=== PATIENT | female | born 1970 | race Caucasian/White ===

== ENCOUNTER 2018-02-27 16:43 | Emergency (ER) | payer OTHER, MEDICAID, SELFPAY ==
[2018-02-27 16:44] VITALS: TEMP 36.7; BMI 32.8
[2018-02-27 16:46] VITALS: BP 131/72; PULSE 74; RESP 14; O2SAT 100
--- NOTE | 2018-02-27 16:47 | DI.RAD.S_ITS ---
PROCEDURE: XR ANKLE RT MIN 3V INDICATIONS: pain injury TECHNIQUE: 3 views of the ankle were acquired. COMPARISON: None. FINDINGS: Bones: Mildly displaced oblique fracture of distal fibula. Ankle mortise is normally aligned. No suspicious bony lesions. Soft tissues: No tibiotalar joint effusion. Achilles tendon appears normal. IMPRESSION: Mildly displaced distal fibular fracture. Dictated by: August Hudson M.D. on 02/27/2018 at 16:56 Approved by: August Hudson M.D. on 02/27/2018 at 16:57
--- NOTE | 2018-02-27 18:23 | ED_ITS ---
HPI - Extremity Injury (Lower) General Chief Complaint: Extremity Injury, Lower Stated Complaint: R ankle injury Time Seen by Provider: 02/27/18 18:07 Source: patient Mode of arrival: ambulatory Limitations: no limitations History of Present Illness HPI Narrative: 48-year-old female here for evaluation of right ankle injury. She states that just prior to arrival she was walking down an incline when her right ankle ?went out? from underneath her. She states that she felt and heard a ?pop? has not been able to ambulate since then. No prior injuries. Swelling to the right ankle. Related Data Previous Rx's Medication Instructions Recorded hydrocodone-acetaminophen 1 tab PO Q4-6H PRN #20 tab 02/27/18 Allergies Allergy/AdvReac Type Severity Reaction Status Date / Time Penicillins Allergy Unverified 02/27/18 16:44 PCN (PENICILLIN) Allergy Severe HIVES Uncoded 10/21/17 12:17 Review of Systems Constitutional Denies frequent falls ENT Ears, Nose, Mouth, and Throat: Denies vertigo and Denies dizziness Musculoskeletal Reports abnormal gait (Secondary to pain and right ankle) Comments: Right ankle pain Integumentary/Breasts Denies lesions and Denies rash Neurologic Reports abnormal gait (Secondary to pain and right ankle), Reports burning sensations (Right ankle), Denies vertigo, Denies dizziness, Denies frequent falls and Denies focal weakness Hematologic/Lymphatic Denies easy bleeding and Denies easy bruising [facility]LY [facility] Medical History Healthy adult (Acute) Surgical History No pertinent past surgical history (Acute) Exam Initial Vital Signs Initial Vital Signs: Vital Signs Temperature 98.1 F 02/27/18 16:44 Const General: cooperative, healthy appearing, well developed, well groomed and No acute distress Resp Effort & Inspection: normal respiratory effort Cardio Pulses: dorsalis pedis present on the right Skin Lesions: no lesions Rashes: no rashes Neuro Other: Sensation intact to light touch right lower extremity Extrem Other: No proximal fibula tenderness. No calf tenderness. Does have tenderness and swelling to the lateral malleolus. No medial malleolus tenderness. No foot tenderness Psych Appearance: grossly normal and well kempt Course Orders Ordered: ED Orders 02/27/18 16:47 XR ankle RT min 3V Stat Discontinued Medications Hydrocodone Bitart/Acetaminophen ([place] 5/325) 1 tab PO NOW ONE Stop: 02/27/18 18:21 Last Admin: 02/27/18 18:38 Dose: 1 tab Hydrocodone Bitart/Acetaminophen (Vicodin Prepack) 1 bottle MISC SEEINSTR ONE Stop: 02/27/18 18:29 Last Admin: 02/27/18 18:38 Dose: 1 bottle Vital Signs - 8 hr 02/27/18 16:44 02/27/18 16:46 02/27/18 19:00 Temperature 98.1 F Pulse Rate 74 Pulse Rate [Bilateral Dorsalis Pedis] 68 Respiratory Rate 14 Blood Pressure Blood Pressure [Right Arm] 131/72 H Pulse Oximetry 100 02/27/18 19:32 Temperature Pulse Rate 78 Pulse Rate [Bilateral Dorsalis Pedis] Respiratory Rate 16 Blood Pressure 113/70 Blood Pressure [Right Arm] Pulse Oximetry 98 MDM - Extremity Injury (Lower) Imaging Data Right ankle x-ray: Radiologist's impression: Minimally displaced right distal fibular fracture MDM Narrative Medical decision making narrative: Patient is neurovascularly intact. Has an isolated distal fibula fracture. Patient was given crutches and a CAM walker. She is given care instructions. She was given follow-up instructions. She was given pain medications. Patient expressed understanding and agreement with plan Discharge Plan Departure Patient Disposition: Home Clinical Impression: Fibula fracture Discharge Date/Time: 02/27/18 19:15 Interventions: ED Discharge Assessment Last Done: 02/27/18 19:32 Instructions: How to Use Crutches, Fibula Shaft Fracture Activity Restrictions/Additional Instructions: You can walk on your right lower extremity as tolerated. Call your primary care doctor on Thursday for follow-up. Also call the [facility] at [phone]. Use the crutches as needed. You can take the boot off to shower and at night to sleep. Also recommend that you keep her foot elevated as much as possible. You can take the boot off to ice her ankle as well.. Otherwise keep the boot on while you are walking. Return to the emergency department for any new or worsening symptoms Prescriptions: New hydrocodone-acetaminophen 5-325 mg tablet 1 tab PO Q4-6H PRN (Reason: pain) Qty: 20 RF: 0 Stand Alone Forms: Work/School Restrictions
[2018-02-27] MEDS: HYDROCODONE/ACET 5/325 PREPACK 1 BOTTLE MISC (18:38)
[2018-02-27] MEDS: HYDROCODONE/ACET 5/325 TABLET 1 TAB PO (18:38)
[2018-02-27 19:00] VITALS: PULSE 68
[2018-02-27 19:32] VITALS: BP 113/70; PULSE 78; RESP 16; O2SAT 98
== END 2018-02-27 19:15 | disposition home or self-care (01) ==
PROVIDERS: Emergency Provider Emergency Medicine; Family Provider Physician Assistant Medical; PCP Physician Assistant Medical
DX: S82.401A Unspecified fracture of shaft of right fibula, initial encounter for closed fracture (principal); T73.3XXA Exhaustion due to excessive exertion, initial encounter
CPT/HCPCS: 73610; 99283

== ENCOUNTER 2021-12-19 19:52 | Emergency (ER) | payer OTHER, MEDICAID, SELFPAY ==
[2021-12-19] VITALS (9 sets, daily range): BP systolic 109–169; BP diastolic 54–93; PULSE 62–73; RESP 14–56; TEMP 36.3; O2SAT 97–100; BMI 26.9
--- NOTE | 2021-12-19 23:23 | ED.SKABFB ---
HPI - Skin/Abscess/Foreign Bdy General Chief complaint: Skin/Abscess/Foreign Body Stated complaint: Really Bad Allergies, Painful Skin Time Seen by Provider: 12/19/21 22:31 Source: patient Mode of arrival: Ambulatory Limitations: no limitations History of Present Illness HPI narrative: Patient has had intermittent hives and itching for the past 4 months.. Patient has been under lot of stress starting in June of last year. However no rash. She has had family losses as well as loss of her dog. 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 She is unsure if this is what is causing her hives and itching to her hands and forearms and chest and around the neck. Has tried triamcinolone with little effect. Patient is scheduled for allergy testing by her family doctor. No trouble breathing. Related Data Previous Rx's Medication Instructions Recorded hydrocodone 5 mg-acetaminophen 325 1 tab PO Q4-6H PRN pain #20 tabs 02/27/18 mg tablet famotidine 20 mg tablet (Pepcid) 20 mg PO BID #14 tabs 12/19/21 hydroxyzine HCl 25 mg tablet 25 mg PO QID PRN itching #20 tabs 12/19/21 methylprednisolone 4 mg tablets in See Rx Instructions PO .COMPLEX 12/19/21 a dose pack (Medrol (Richie)) #21 ea Allergies Allergy/AdvReac Type Severity Reaction Status Date / Time Penicillins Allergy Verified 12/19/21 20:07 PCN (PENICILLIN) Allergy Severe HIVES Uncoded 10/21/17 12:17 Review of Systems Review of Systems Narrative: GENERAL: Denies chills, fatigue, malaise, fever, sweats. HEENT: Denies sinus pain, ear pain, sore throat RESPIRATORY: Denies dyspnea, cough CARDIOVASCULAR: Denies chest pain, palpitations GASTROINTESTINAL: Denies nausea, vomiting, abdominal pain : Denies dysuria, frequency, hematuria MUSCULOSKELETAL: denies muscle or bony pain SKIN: Negative for skin lesions, positive for rash and pruritus NEUROLOGIC: Denies weakness, numbness ROS Unobtainable: All systems reviewed & are unremarkable except as noted in HPI and below Patient History Medical History Healthy adult Surgical History No pertinent past surgical history Social History Smoking Status: Unknown if ever smoked Smoking Status: Unknown if ever smoked alcohol intake frequency: a few times a week Substance Use Type: does not use Exam Narrative Exam Narrative: GENERAL: in no distress, not toxic not dyspneic HEAD: Normocephalic. EYES: Pupils equal round No scleral icterus. ENT: Mucous membranes moist. No oral or intraoral swelling NECK: Trachea midline. No stridor CARDIOVASCULAR: Regular rate and rhythm without murmurs RESPIRATORY: Clear to auscultation. Breath sounds equal bilaterally. No wheezes, rales, or rhonchi. BACK: No flank tenderness. NEURO: AOx4. SKIN: Warm and dry, there are wheal like lesions on the forearms bilaterally and dorsum of the hands. Also there is erythema in a necklace like pattern around the neck. No lesions on the abdomen or back. PSYCH: Not anxious, is cooperative Initial Vital Signs Initial Vital Signs: Vital Signs Temperature 97.3 F L 12/19/21 20:07 Pulse Rate 73 12/19/21 20:07 Respiratory Rate 14 12/19/21 20:07 Blood Pressure 169/93 H 12/19/21 20:07 Pulse Oximetry 99 12/19/21 20:07 Oxygen Delivery Method 12/19/21 20:07 Course Course Course Narrative: No new issues during course of stay Orders Ordered: Discontinued Medications Famotidine (Famotidine 20 Mg Tablet) 20 mg PO NOW ONE Stop: 12/19/21 23:33 Last Admin: 12/19/21 23:40 Dose: 20 mg Documented By: NR Prednisone (Prednisone 20 Mg Tablet) 40 mg PO NOW ONE Stop: 12/19/21 23:32 Last Admin: 12/19/21 23:41 Dose: 40 mg Documented By: NR Reevaluation(s) Reevaluation #1: Reviewed with patient likely allergic reaction to her environment/work environment. She is unsure when it is most intense. She is scheduled for allergy testing. Return precautions reviewed with her. Time: 23:31 Vital Signs Vital signs: Vital Signs - 8 hr 12/19/21 20:07 12/19/21 20:23 12/19/21 20:24 Temperature 97.3 F L Pulse Rate 73 69 73 Respiratory Rate 14 56 H Blood Pressure 169/93 H Pulse Oximetry 99 100 100 Oxygen Delivery Method Room Air 12/19/21 20:24 12/19/21 20:30 12/19/21 20:31 Temperature Pulse Rate 62 65 Respiratory Rate 24 27 H Blood Pressure 156/70 H Pulse Oximetry 100 100 Oxygen Delivery Method 12/19/21 20:31 12/19/21 21:00 12/19/21 21:01 Temperature Pulse Rate 65 Respiratory Rate 34 H Blood Pressure 131/60 119/58 L Pulse Oximetry 98 Oxygen Delivery Method 12/19/21 21:01 12/19/21 21:30 12/19/21 21:31 Temperature Pulse Rate 70 67 64 Respiratory Rate 37 H 26 H 21 Blood Pressure Pulse Oximetry 98 97 97 Oxygen Delivery Method 12/19/21 21:31 Temperature Pulse Rate Respiratory Rate Blood Pressure 109/54 L Pulse Oximetry Oxygen Delivery Method MDM - Skin/Abscess/Foreign Bdy Differential Diagnosis Differential diagnosis: Likely urticaria, allergic reaction to drug, cellulitis, eczema, insect bites and contact dermatitis MDM Narrative Medical decision making narrative: Appropriate for discharge home. No blood work indicated. Likely contact dermatitis versus allergic reaction to dander. Return precautions reviewed patient. Prescriptions provided for her. She does have a family doctor Discharge Plan Departure Patient Disposition: Home Clinical Impression: Dermatitis Instructions: DI for Atopic Dermatitis-Adult Activity Restrictions/Additional Instructions: Be sure to get allergy testing as scheduled by family doctor. Prescription for steroids has been provided for you as well as hydroxyzine and Pepcid. You must try to avoid contact with PET dander to see if this is causing your allergic reaction. Return if worse or if any questions or concerns. Return if any trouble breathing. Prescriptions: New methylprednisolone [Medrol (Richie)] 4 mg tablets,dose pack See Rx Instructions .ROUTE .COMPLEX Qty: 21 0RF Rx Instructions: orally per package directions famotidine [Pepcid] 20 mg tablet 20 mg PO BID Qty: 14 0RF hydroxyzine HCl 25 mg tablet 25 mg PO QID PRN (Reason: itching) Qty: 20 0RF No Action hydrocodone-acetaminophen 5-325 mg tablet 1 tab PO Q4-6H PRN (Reason: pain) Qty: 20 0RF Referrals: Geneva Clemens PA-C [Primary Care Provider] - Visit Report Forms: Patient Portal/API
[2021-12-19] MEDS: FAMOTIDINE 20 MG TABLET PO (23:40)
[2021-12-19] MEDS: predniSONE 20 MG TABLET 40 MG PO (23:41)
== END 2021-12-19 23:46 | disposition home or self-care (01) ==
PROVIDERS: Emergency Provider Emergency Medicine; Family Provider Physician Assistant Medical; PCP Physician Assistant Medical
DX: L30.9 Dermatitis, unspecified (principal)
CPT/HCPCS: 99283; A9270

== ENCOUNTER 2022-05-10 12:34 | Emergency (ER) | payer OTHER, MEDICAID, SELFPAY ==
[2022-05-10] VITALS (21 sets, daily range): BP systolic 107–189; BP diastolic 60–91; PULSE 60–116; RESP 17–33; TEMP 36.4–36.9; O2SAT 96–99; BMI 29.0
--- NOTE | 2022-05-10 13:04 | ED_ITS ---
HPI - Alcohol <Lyla Rivera, [facility] - Last Filed: 05/10/22 20:25> General Chief Complaint: Toxicology Problem Stated Complaint: Need to Detox, Vivek Time Seen by Provider: 05/10/22 12:50 Source: patient Mode of arrival: Ambulatory History of Present Illness HPI narrative: This is a 52-year-old female presents to the emergency department with alcohol withdrawal symptoms requesting inpatient detox. She states that she drinks 1-2 bottles of wine each day, denies any other medical problems. States that she last drank last evening, she typically drinks wine. She called her mother and family who picked her up and brought her to the emergency department. Patient lives with her children. She denies any ingestion, denies any attempts at self- harm other than drinking. She states that she has had tremors and symptoms of withdrawal in the past but has never had a seizure. She has sought treatment in the past as well. Patient has [facility] insurance, her primary care provider she states is on [address] but she has not seen them in a while. On chart review, no Family Medicine notes are reviewable. Patient denies taking any regular medications, she denies any blood in her stool, states she had 1 episode of emesis this morning, it was approximately 300 mL of bile. She denies any blood in that. She denies any recent trauma, blackouts, or falls. She denies any recent episodes where she did not know where she was when she woke up. Patient complains of epigastric pain, had 1 episode of vomiting this morning, no other episodes previously. She is not currently on a PPI Related Data Previous Rx's Medication Instructions Recorded hydrocodone 5 mg-acetaminophen 325 1 tab PO Q4-6H PRN pain #20 tabs 02/27/ mg tablet famotidine 20 mg tablet (Pepcid) 20 mg PO BID #14 tabs 12/19/21 hydroxyzine HCl 25 mg tablet 25 mg PO QID PRN itching #20 tabs 12/19/21 methylprednisolone 4 mg tablets in See Rx Instructions PO .COMPLEX 12/19/21 a dose pack (Medrol (Richie)) #21 ea omeprazole 20 mg tablet,delayed 20 mg PO DAILY #30 tabs 05/10/22 release Allergies Allergy/AdvReac Type Severity Reaction Status Date / Time Penicillins Allergy Verified 05/10/22 12:40 PCN (PENICILLIN) Allergy Severe HIVES Uncoded 10/21/17 12:17 Review of Systems <TRUMAN Mendieta - Last Filed: 05/10/22 20:25> Review of Systems Narrative: Review of systems is negative for acute abnormalities unless otherwise noted in HPI Patient History <TRUMAN Mendieta - Last Filed: 05/10/22 20:25> Medical History (Updated 05/10/22 @ 17:46 by TRUMAN Mendieta) Healthy adult Surgical History No pertinent past surgical history Social History Smoking Status: Unknown if ever smoked Smoking Status: Unknown if ever smoked alcohol intake frequency: 3 or more drinks per day Alcohol type: wine Substance Use Type: does not use Exam <TRUMAN Mendieta - Last Filed: 05/10/22 20:25> Narrative Exam Narrative: Reviewed vitals signs and nursing notes. General: Pleasant and cooperative, patient is anxious, itching her skin, uncomfortable, appears to be in acute distress without respiratory distress, well groomed HEENT: symmetrical facial expressions, tongue fasciculations are present, moist mucous membranes Cardiovascular: regular rate and rhythm, no peripheral edema, warm extremities Respiratory: normal effort, tachypneic, able to speak in complete sentences, without wheezing, stridor, or abnormal breath sounds. No retractions. GI: abdomen soft, nontender to palpation, nondistended, without masses, without masses MSK: Significant tremor to bilateral upper extremities, patient is hyperreflexive, moves all extremities, neurovascularly intact, no weakness, normal tone Skin: brisk capillary refill, without pallor or erythema, face is flushed, Neuro: normal speech and cognition, A&O x3, ambulatory, clear speech, Psych: mental status is grossly normal, congruent mood, normal affect, pleasant and cooperative CIWA by RN is 19 Medications ordered at 13:00, IV placed just prior to this Initial Vital Signs Initial Vital Signs: Vital Signs Temperature 97.5 F L 05/10/22 12:40 Pulse Rate 92 H 05/10/22 12:40 Respiratory Rate 17 05/10/22 12:40 Blood Pressure 189/87 H 05/10/22 12:40 Pulse Oximetry 99 05/10/22 12:40 Oxygen Delivery Method 05/10/22 12:40 <Rom Honeycutt DO - Last Filed: 05/11/22 08:36> Initial Vital Signs Initial Vital Signs: Vital Signs Temperature 97.5 F L 05/10/22 12:40 Pulse Rate 92 H 05/10/22 12:40 Respiratory Rate 17 05/10/22 12:40 Blood Pressure 189/87 H 05/10/22 12:40 Pulse Oximetry 99 05/10/22 12:40 Oxygen Delivery Method 05/10/22 12:40 Course <TRUMAN Mendieta - Last Filed: 05/10/22 20:25> Orders Ordered: Discontinued Medications Acetaminophen (Acetaminophen 325 Mg Tablet) 975 mg PO NOW ONE Stop: 05/10/22 14:44 Last Admin: 05/10/22 14:50 Dose: 975 mg Documented By: VARGAS Artificial Tears (Polyvinyl Alcohol Drops) 1 drops EYE-BOTH PRN PRN PRN Reason: Dry Eye(s) Last Admin: 05/10/22 16:56 Dose: 1 drop Documented By: ERIN Benzocaine (Benzocaine/Menthol 1 Lalito Pkt) 1 each PO NOW ONE Stop: 05/10/22 16:01 Last Admin: 05/10/22 16:33 Dose: 1 each Documented By: ERIN Hydromorphone HCl (Hydromorphone 0.5 Mg Inj) 0.5 mg IV NOW ONE Stop: 05/10/22 14:38 Last Admin: 05/10/22 20:27 Dose: Not Given Documented By: VARGAS(2) Hydroxyzine Pamoate (Hydroxyzine Pamoate 25 Mg Capsule) 25 mg PO NOW ONE Stop: 05/10/22 19:46 Last Admin: 05/10/22 20:26 Dose: 25 mg Documented By: VARGAS(2) Sodium Chloride (Normal Saline 0.9%) 1,000 mls @ 1,000 mls/hr IV BOLUS ONE Stop: 05/10/22 13:53 Last Infusion: 05/10/22 14:25 Dose: 0 mls/hr Documented By: Admin: 05/10/22 13:17 Dose: 1,000 mls/hr Documented By: VARGAS Thiamine HCl 100 mg/ Sodium (Chloride) 101 mls @ 404 mls/hr IV NOW ONE Stop: 05/10/22 12:58 Last Infusion: 05/10/22 14:17 Dose: 0 mls/hr Documented By: VARGAS(2) Admin: 05/10/22 13:18 Dose: 404 mls/hr Documented By: VARGAS Magnesium Sulfate (Magnesium Sulfate) 2 gm in 50 mls @ 150 mls/hr IV NOW ONE Stop: 05/10/22 14:08 Last Infusion: 05/10/22 14:45 Dose: 0 mls/hr Documented By: VARGAS Co-signed By: VARGAS(2) Admin: 05/10/22 14:04 Dose: 150 mls/hr Documented By: VARGAS Co-signed By: VALERIE Sodium Chloride (Normal Saline 0.9%) 1,000 mls @ 1,000 mls/hr IV BOLUS ONE Stop: 05/10/22 15:46 Last Infusion: 05/10/22 16:43 Dose: 0 mls/hr Documented By: Admin: 05/10/22 14:51 Dose: 1,000 mls/hr Documented By: VARGAS Ondansetron HCl (Ondansetron 4 Mg/2 Ml Inj) 4 mg IV NOW ONE Stop: 05/10/22 12:55 Last Admin: 05/10/22 13:18 Dose: 4 mg Documented By: VARGAS Ondansetron HCl (Ondansetron 4 Mg/2 Ml Inj) 4 mg IV NOW ONE Stop: 05/10/22 18:10 Last Admin: 05/10/22 18:34 Dose: 4 mg Documented By: ERIN Oxycodone/Acetaminophen (Oxycodone/Acetaminophen 5/325 Tablet) 1 tab PO NOW ONE Stop: 05/10/22 19:45 Last Admin: 05/10/22 20:26 Dose: 1 tab Documented By: VARGAS(2) Pantoprazole Sodium (Pantoprazole 40 Mg Vial) 40 mg IV NOW ONE Stop: 05/10/22 14:34 Last Admin: 05/10/22 14:37 Dose: 40 mg Documented By: VARGAS(2) Pantoprazole Sodium (Pantoprazole Dr 20 Mg Tablet) 20 mg PO NOW ONE Stop: 05/10/22 19:45 Last Admin: 05/10/22 20:27 Dose: 20 mg Documented By: VARGAS(2) Phenobarbital (Phenobarbital 65 Mg/Ml Vial) 260 mg IV NOW ONE Stop: 05/10/22 12:55 Last Admin: 05/10/22 13:19 Dose: 260 mg Documented By: VARGAS Phenobarbital (Phenobarbital 65 Mg/Ml Vial) 130 mg IV NOW ONE Stop: 05/10/22 14:31 Last Admin: 05/10/22 14:37 Dose: 130 mg Documented By: VARGAS(2) Phenobarbital (Phenobarbital 65 Mg/Ml Vial) 130 mg IV NOW ONE Stop: 05/10/22 15:31 Last Admin: 05/10/22 15:47 Dose: 130 mg Documented By: VARGAS Phenobarbital (Phenobarbital 65 Mg/Ml Vial) 65 mg IV NOW ONE Stop: 05/10/22 16:20 Last Admin: 05/10/22 16:33 Dose: 65 mg Documented By: ERIN Reevaluation(s) Reevaluation #1: Reassessed patient she is calm, heart rate down to 76, she appears comfortable, no vomiting she still has tremors bilaterally with arms extended Time: 13:49 Reevaluation #2: Bilateral tremors with arm extension, patient states that she feels much better, denies chest pain, denies nausea or vomiting, endorses epigastric pain, complains of pain, ordered hydromorphone, right upper quadrant ultrasound, and Protonix. Patient receiving magnesium infusion now ordered repeat phenobarbital 160 mg Time: 14:32 Reevaluation #3: 1434 patient complaining epigastric pain and also headache, just ordered hydromorphone but nurse requests to give Tylenol instead as she states that she would rather give for headache. At 15:00, patient states that her abdominal pain is much better after the Dilaudid, endorses still having headache, ordered 2 L of normal saline, pending repeat lactate Additional Reevaluation(s): RN states that patient's CIWA is 13, ordered 130 mg of phenobarbital ., ultrasound arrived to patient's room at 15:55, urine dip was negative for leukocytes and RBCs 1709, CIWA 3, pt received 65mg phenobarb most recently Vital Signs Vital signs: Vital Signs - 8 hr 05/10/22 12:40 05/10/22 13:11 05/10/22 13:11 Temperature 97.5 F L Pulse Rate 92 H 79 Respiratory Rate 17 19 Blood Pressure 189/87 H 167/81 H Pulse Oximetry 99 98 Oxygen Delivery Method Room Air 05/10/22 13:30 05/10/22 13:30 05/10/22 14:00 Temperature Pulse Rate 78 86 Respiratory Rate 22 20 Blood Pressure 157/78 H Pulse Oximetry 97 99 Oxygen Delivery Method 05/10/22 14:01 05/10/22 14:01 05/10/22 14:30 Temperature Pulse Rate 85 92 H Respiratory Rate 20 20 Blood Pressure 152/71 H Pulse Oximetry 98 98 Oxygen Delivery Method 05/10/22 14:31 05/10/22 14:31 05/10/22 15:00 Temperature Pulse Rate 91 H Respiratory Rate 20 Blood Pressure 137/68 157/70 H Pulse Oximetry 98 Oxygen Delivery Method 05/10/22 15:00 05/10/22 15:41 05/10/22 15:42 Temperature Pulse Rate 95 H 116 H 113 H Respiratory Rate 22 26 H Blood Pressure Pulse Oximetry 99 96 Oxygen Delivery Method 05/10/22 15:42 05/10/22 16:00 05/10/22 16:00 Temperature Pulse Rate 99 H Respiratory Rate 22 Blood Pressure 139/61 126/60 Pulse Oximetry 97 Oxygen Delivery Method 05/10/22 16:30 05/10/22 16:30 05/10/22 17:00 Temperature 98.4 F Pulse Rate 100 H 102 H Respiratory Rate 21 Blood Pressure 142/68 H Pulse Oximetry 98 98 Oxygen Delivery Method 05/10/22 17:01 05/10/22 17:01 05/10/22 17:30 Temperature Pulse Rate 105 H Respiratory Rate 22 Blood Pressure 148/71 H 143/75 H Pulse Oximetry 98 Oxygen Delivery Method 05/10/22 17:30 05/10/22 18:00 05/10/22 18:00 Temperature Pulse Rate 99 H 88 Respiratory Rate 17 Blood Pressure 133/63 Pulse Oximetry 98 96 Oxygen Delivery Method 05/10/22 18:30 05/10/22 18:30 05/10/22 19:00 Temperature Pulse Rate 100 H 100 H Respiratory Rate 18 33 H Blood Pressure 125/91 H Pulse Oximetry 98 Oxygen Delivery Method 05/10/22 19:01 05/10/22 19:01 05/10/22 19:30 Temperature Pulse Rate 101 H Respiratory Rate 27 H Blood Pressure 107/75 141/66 H Pulse Oximetry 98 Oxygen Delivery Method 05/10/22 19:30 Temperature Pulse Rate 82 Respiratory Rate 21 Blood Pressure Pulse Oximetry 97 Oxygen Delivery Method <Rom Honeycutt DO - Last Filed: 05/11/22 08:36> Orders Ordered: Discontinued Medications Acetaminophen (Acetaminophen 325 Mg Tablet) 975 mg PO NOW ONE Stop: 05/10/22 14:44 Last Admin: 05/10/22 14:50 Dose: 975 mg Documented By: VARGAS Artificial Tears (Polyvinyl Alcohol Drops) 1 drops EYE-BOTH PRN PRN PRN Reason: Dry Eye(s) Last Admin: 05/10/22 16:56 Dose: 1 drop Documented By: ERIN Benzocaine (Benzocaine/Menthol 1 Lalito Pkt) 1 each PO NOW ONE Stop: 05/10/22 16:01 Last Admin: 05/10/22 16:33 Dose: 1 each Documented By: ERIN Hydromorphone HCl (Hydromorphone 0.5 Mg Inj) 0.5 mg IV NOW ONE Stop: 05/10/22 14:38 Last Admin: 05/10/22 20:27 Dose: Not Given Documented By: VARGAS(2) Hydroxyzine Pamoate (Hydroxyzine Pamoate 25 Mg Capsule) 25 mg PO NOW ONE Stop: 05/10/22 19:46 Last Admin: 05/10/22 20:26 Dose: 25 mg Documented By: VARGAS(2) Sodium Chloride (Normal Saline 0.9%) 1,000 mls @ 1,000 mls/hr IV BOLUS ONE Stop: 05/10/22 13:53 Last Infusion: 05/10/22 14:25 Dose: 0 mls/hr Documented By: Admin: 05/10/22 13:17 Dose: 1,000 mls/hr Documented By: VARGAS Thiamine HCl 100 mg/ Sodium (Chloride) 101 mls @ 404 mls/hr IV NOW ONE Stop: 05/10/22 12:58 Last Infusion: 05/10/22 14:17 Dose: 0 mls/hr Documented By: VARGAS(2) Admin: 05/10/22 13:18 Dose: 404 mls/hr Documented By: VARGAS Magnesium Sulfate (Magnesium Sulfate) 2 gm in 50 mls @ 150 mls/hr IV NOW ONE Stop: 05/10/22 14:08 Last Infusion: 05/10/22 14:45 Dose: 0 mls/hr Documented By: VARGAS Co-signed By: VARGAS(2) Admin: 05/10/22 14:04 Dose: 150 mls/hr Documented By: VARGAS Co-signed By: VALERIE Sodium Chloride (Normal Saline 0.9%) 1,000 mls @ 1,000 mls/hr IV BOLUS ONE Stop: 05/10/22 15:46 Last Infusion: 05/10/22 16:43 Dose: 0 mls/hr Documented By: Admin: 05/10/22 14:51 Dose: 1,000 mls/hr Documented By: VARGAS Ondansetron HCl (Ondansetron 4 Mg/2 Ml Inj) 4 mg IV NOW ONE Stop: 05/10/22 12:55 Last Admin: 05/10/22 13:18 Dose: 4 mg Documented By: VARGAS Ondansetron HCl (Ondansetron 4 Mg/2 Ml Inj) 4 mg IV NOW ONE Stop: 05/10/22 18:10 Last Admin: 05/10/22 18:34 Dose: 4 mg Documented By: ERIN Oxycodone/Acetaminophen (Oxycodone/Acetaminophen 5/325 Tablet) 1 tab PO NOW ONE Stop: 05/10/22 19:45 Last Admin: 05/10/22 20:26 Dose: 1 tab Documented By: VARGAS(2) Pantoprazole Sodium (Pantoprazole 40 Mg Vial) 40 mg IV NOW ONE Stop: 05/10/22 14:34 Last Admin: 05/10/22 14:37 Dose: 40 mg Documented By: VARGAS(2) Pantoprazole Sodium (Pantoprazole Dr 20 Mg Tablet) 20 mg PO NOW ONE Stop: 05/10/22 19:45 Last Admin: 05/10/22 20:27 Dose: 20 mg Documented By: VARGAS(2) Phenobarbital (Phenobarbital 65 Mg/Ml Vial) 260 mg IV NOW ONE Stop: 05/10/22 12:55 Last Admin: 05/10/22 13:19 Dose: 260 mg Documented By: VARGAS Phenobarbital (Phenobarbital 65 Mg/Ml Vial) 130 mg IV NOW ONE Stop: 05/10/22 14:31 Last Admin: 05/10/22 14:37 Dose: 130 mg Documented By: VARGAS(2) Phenobarbital (Phenobarbital 65 Mg/Ml Vial) 130 mg IV NOW ONE Stop: 05/10/22 15:31 Last Admin: 05/10/22 15:47 Dose: 130 mg Documented By: VARGAS Phenobarbital (Phenobarbital 65 Mg/Ml Vial) 65 mg IV NOW ONE Stop: 05/10/22 16:20 Last Admin: 05/10/22 16:33 Dose: 65 mg Documented By: ERIN Vital Signs Vital signs: Vital Signs - 8 hr 05/10/22 12:40 05/10/22 13:11 05/10/22 13:11 Temperature 97.5 F L Pulse Rate 92 H 79 Respiratory Rate 17 19 Blood Pressure 189/87 H 167/81 H Pulse Oximetry 99 98 Oxygen Delivery Method Room Air 05/10/22 13:30 05/10/22 13:30 05/10/22 14:00 Temperature Pulse Rate 78 86 Respiratory Rate 22 20 Blood Pressure 157/78 H Pulse Oximetry 97 99 Oxygen Delivery Method 05/10/22 14:01 05/10/22 14:01 05/10/22 14:30 Temperature Pulse Rate 85 92 H Respiratory Rate 20 20 Blood Pressure 152/71 H Pulse Oximetry 98 98 Oxygen Delivery Method 05/10/22 14:31 05/10/22 14:31 05/10/22 15:00 Temperature Pulse Rate 91 H Respiratory Rate 20 Blood Pressure 137/68 157/70 H Pulse Oximetry 98 Oxygen Delivery Method 05/10/22 15:00 05/10/22 15:41 05/10/22 15:42 Temperature Pulse Rate 95 H 116 H 113 H Respiratory Rate 22 26 H Blood Pressure Pulse Oximetry 99 96 Oxygen Delivery Method 05/10/22 15:42 05/10/22 16:00 05/10/22 16:00 Temperature Pulse Rate 99 H Respiratory Rate 22 Blood Pressure 139/61 126/60 Pulse Oximetry 97 Oxygen Delivery Method 05/10/22 16:30 05/10/22 16:30 05/10/22 17:00 Temperature 98.4 F Pulse Rate 100 H 102 H Respiratory Rate 21 Blood Pressure 142/68 H Pulse Oximetry 98 98 Oxygen Delivery Method 05/10/22 17:01 05/10/22 17:01 05/10/22 17:30 Temperature Pulse Rate 105 H Respiratory Rate 22 Blood Pressure 148/71 H 143/75 H Pulse Oximetry 98 Oxygen Delivery Method 05/10/22 17:30 05/10/22 18:00 05/10/22 18:00 Temperature Pulse Rate 99 H 88 Respiratory Rate 17 Blood Pressure 133/63 Pulse Oximetry 98 96 Oxygen Delivery Method 05/10/22 18:30 05/10/22 18:30 05/10/22 19:00 Temperature Pulse Rate 100 H 100 H Respiratory Rate 18 33 H Blood Pressure 125/91 H Pulse Oximetry 98 Oxygen Delivery Method 05/10/22 19:01 05/10/22 19:01 05/10/22 19:30 Temperature Pulse Rate 101 H Respiratory Rate 27 H Blood Pressure 107/75 141/66 H Pulse Oximetry 98 Oxygen Delivery Method 05/10/22 19:30 Temperature Pulse Rate 82 Respiratory Rate 21 Blood Pressure Pulse Oximetry 97 Oxygen Delivery Method MDM - Alcohol <TRUMAN Mendieta - Last Filed: 05/10/22 20:25> Lab Data Result diagrams: 05/10/22 13:00 05/10/22 13:00 Labs: Lab Results 05/10/22 05/10/22 05/10/22 Range/Units 13:00 13:00 13:00 WBC 10.7 (4.5-11.0) X10^3/uL RBC 4.59 (4.0-5.2) X10^6/uL Hgb 15.2 (12.0-16.0) g/dL Hct 43.9 (36-46) % MCV 95.7 (80-100) fL MCH 33.2 (26-34) PG MCHC 34.7 (30-36) % RDW 13.6 (11.6-14.8) % Plt Count 190 (150-400) X10^3/uL Neut % (Auto) 83.8 H (50-75) % Lymph % (Auto) 11.5 L (25-40) % [place] % (Auto) 4.1 (3-14) % Eos % (Auto) 0.0 L (2-4) % Baso % (Auto) 0.6 (0-2) % Neut # (Auto) 9000 H (8704-5260) /uL Lymph # (Auto) 1200 (0098-1151) /uL [place] # (Auto) 400 (0-900) /uL Eos # (Auto) 0 (0-450) /uL Baso # (Auto) 100 (0-100) /uL Sodium 132 L (137-145) mmol/L Potassium 3.8 (3.4-5.1) mmol/L Chloride 94 L (98-107) mmol/L Carbon Dioxide 23 (22-32) mmol/L BUN 12 (7-17) mg/dL Creatinine 0.68 (0.52-1.04) mg/dL Estimated GFR > 60 (>60) mL/min BUN/Creatinine Ratio 17.6 (6-22) Glucose 109 H (70-100) mg/dL Lactate (0.7-2.1) mmol/L Calcium 8.9 (8.4-10.2) mg/dL Magnesium (1.6-2.3) mg/dL Total Bilirubin 1.8 H (0.2-1.3) mg/dL AST 44 H (14-36) IU/L ALT 28 (<35) IU/L Alkaline Phosphatase 98 (38-126) U/L Total Protein 8.8 H (6.3-8.2) g/dL Albumin 4.9 (3.5-5.0) g/dL Globulin 3.9 (1.7-4.1) g/dL Albumin/Globulin Ratio 1.3 (1.0-2.8) Serum , Qual Negative (Negative) Urine Color Urine Appearance Urine pH (4.5-8.0) Ur Specific [place] (1.000-1.035) Urine Protein (Negative) Urine Glucose (UA) (Negative) g/dL Urine Ketones (NEGATIVE) Urine Occult Blood (Negative) Urine Nitrate (Negative) Urine Bilirubin (NEGATIVE) Urine Urobilinogen (0.2) E.U./dL Ur Leukocyte Esterase (NEGATIVE) Urine RBC (0-5/HPF) Urine WBC (0-5/HPF) Ur Squamous Epith Cells (0-5/HPF) Ur Transition Epith Cell (0-5/HPF) Ur Renal Epithelial Cell (0-1/HPF) Urine Bacteria (None) Salicylates < 1.0 (<20) mg/dL U Opiates 300ng/mL cut (Negative) Ur Oxycodone Screen (Negative) Urine Methadone Screen (Negative) Acetaminophen < 10 (10-30) ug/mL Ur Barbiturates Screen (Negative) U Tricyclic Antidepress (Negative) Ur Phencyclidine Scrn (Negative) Ur Amphetamines Screen (Negative) U Methamphetamines Scrn (Negative) Ur MDMA Scrn (Ecstasy) (Negative) U Benzodiazepines Scrn (Negative) Urine Cocaine Screen (Negative) U Marijuana (THC) Screen (Negative) Ethyl Alcohol 29 H ( - 10) mg/dL SARS-CoV-2 (PCR) (Negative) 05/10/22 05/10/22 05/10/22 Range/Units 13:00 13:00 13:04 WBC (4.5-11.0) X10^3/uL RBC (4.0-5.2) X10^6/uL Hgb (12.0-16.0) g/dL Hct (36-46) % MCV (80-100) fL MCH (26-34) PG MCHC (30-36) % RDW (11.6-14.8) % Plt Count (150-400) X10^3/uL Neut % (Auto) (50-75) % Lymph % (Auto) (25-40) % [place] % (Auto) (3-14) % Eos % (Auto) (2-4) % Baso % (Auto) (0-2) % Neut # (Auto) (9325-8195) /uL Lymph # (Auto) (4519-0730) /uL [place] # (Auto) (0-900) /uL Eos # (Auto) (0-450) /uL Baso # (Auto) (0-100) /uL Sodium (137-145) mmol/L Potassium (3.4-5.1) mmol/L Chloride (98-107) mmol/L Carbon Dioxide (22-32) mmol/L BUN (7-17) mg/dL Creatinine (0.52-1.04) mg/dL Estimated GFR (>60) mL/min BUN/Creatinine Ratio (6-22) Glucose (70-100) mg/dL Lactate 3.5 H (0.7-2.1) mmol/L Calcium (8.4-10.2) mg/dL Magnesium 1.5 L (1.6-2.3) mg/dL Total Bilirubin (0.2-1.3) mg/dL AST (14-36) IU/L ALT (<35) IU/L Alkaline Phosphatase (38-126) U/L Total Protein (6.3-8.2) g/dL Albumin (3.5-5.0) g/dL Globulin (1.7-4.1) g/dL Albumin/Globulin Ratio (1.0-2.8) Serum , Qual (Negative) Urine Color Urine Appearance Urine pH (4.5-8.0) Ur Specific [place] (1.000-1.035) Urine Protein (Negative) Urine Glucose (UA) (Negative) g/dL Urine Ketones (NEGATIVE) Urine Occult Blood (Negative) Urine Nitrate (Negative) Urine Bilirubin (NEGATIVE) Urine Urobilinogen (0.2) E.U./dL Ur Leukocyte Esterase (NEGATIVE) Urine RBC (0-5/HPF) Urine WBC (0-5/HPF) Ur Squamous Epith Cells (0-5/HPF) Ur Transition Epith Cell (0-5/HPF) Ur Renal Epithelial Cell (0-1/HPF) Urine Bacteria (None) Salicylates (<20) mg/dL U Opiates 300ng/mL cut (Negative) Ur Oxycodone Screen (Negative) Urine Methadone Screen (Negative) Acetaminophen (10-30) ug/mL Ur Barbiturates Screen (Negative) U Tricyclic Antidepress (Negative) Ur Phencyclidine Scrn (Negative) Ur Amphetamines Screen (Negative) U Methamphetamines Scrn (Negative) Ur MDMA Scrn (Ecstasy) (Negative) U Benzodiazepines Scrn (Negative) Urine Cocaine Screen (Negative) U Marijuana (THC) Screen (Negative) Ethyl Alcohol ( - 10) mg/dL SARS-CoV-2 (PCR) Negative (Negative) 05/10/22 05/10/22 05/10/22 Range/Units 15:40 15:55 15:55 WBC (4.5-11.0) X10^3/uL RBC (4.0-5.2) X10^6/uL Hgb (12.0-16.0) g/dL Hct (36-46) % MCV (80-100) fL MCH (26-34) PG MCHC (30-36) % RDW (11.6-14.8) % Plt Count (150-400) X10^3/uL Neut % (Auto) (50-75) % Lymph % (Auto) (25-40) % [place] % (Auto) (3-14) % Eos % (Auto) (2-4) % Baso % (Auto) (0-2) % Neut # (Auto) (5799-9959) /uL Lymph # (Auto) (1286-0732) /uL [place] # (Auto) (0-900) /uL Eos # (Auto) (0-450) /uL Baso # (Auto) (0-100) /uL Sodium (137-145) mmol/L Potassium (3.4-5.1) mmol/L Chloride (98-107) mmol/L Carbon Dioxide (22-32) mmol/L BUN (7-17) mg/dL Creatinine (0.52-1.04) mg/dL Estimated GFR (>60) mL/min BUN/Creatinine Ratio (6-22) Glucose (70-100) mg/dL Lactate 1.3 (0.7-2.1) mmol/L Calcium (8.4-10.2) mg/dL Magnesium (1.6-2.3) mg/dL Total Bilirubin (0.2-1.3) mg/dL AST (14-36) IU/L ALT (<35) IU/L Alkaline Phosphatase (38-126) U/L Total Protein (6.3-8.2) g/dL Albumin (3.5-5.0) g/dL Globulin (1.7-4.1) g/dL Albumin/Globulin Ratio (1.0-2.8) Serum , Qual (Negative) Urine Color Yellow Urine Appearance Clear Urine pH 6.5 (4.5-8.0) Ur Specific [place] 1.010 (1.000-1.035) Urine Protein 1+ H (Negative) Urine Glucose (UA) Negative (Negative) g/dL Urine Ketones Trace H (NEGATIVE) Urine Occult Blood 1+ H (Negative) Urine Nitrate Negative (Negative) Urine Bilirubin Negative (NEGATIVE) Urine Urobilinogen 0.2 (0.2) E.U./dL Ur Leukocyte Esterase Negative (NEGATIVE) Urine RBC 1-5/hpf (0-5/HPF) Urine WBC None seen (0-5/HPF) Ur Squamous Epith Cells 5-10 /hpf H (0-5/HPF) Ur Transition Epith Cell 5-10/hpf H (0-5/HPF) Ur Renal Epithelial Cell 1-5/hpf H (0-1/HPF) Urine Bacteria None seen (None) Salicylates (<20) mg/dL U Opiates 300ng/mL cut Negative (Negative) Ur Oxycodone Screen Negative (Negative) Urine Methadone Screen Negative (Negative) Acetaminophen (10-30) ug/mL Ur Barbiturates Screen Positive H (Negative) U Tricyclic Antidepress Negative (Negative) Ur Phencyclidine Scrn Negative (Negative) Ur Amphetamines Screen Negative (Negative) U Methamphetamines Scrn Negative (Negative) Ur MDMA Scrn (Ecstasy) Negative (Negative) U Benzodiazepines Scrn Negative (Negative) Urine Cocaine Screen Negative (Negative) U Marijuana (THC) Screen Negative (Negative) Ethyl Alcohol ( - 10) mg/dL SARS-CoV-2 (PCR) (Negative) Urine Dip Bedside Urine Glucose Negative Bedside Urine Bilirubin - Negative Bedside Urine Ketone +/- 5 Urine Specific [place] 1.010 Bedside Urine Occult Blood + Bedside Urine pH 6 Bedside Urine Protein + 30 Bedside Urine Urobilinogen - Negative Bedside Urine Nitrite - Negative Bedside Urine Leukocytes - Negative Esterase Imaging Data US - abdomen: Radiologist's Impressoin: PROCEDURE:? US ABDOMEN LIMITED ? INDICATIONS:? ELEVATED BILIRUBIN ? TECHNIQUE:? Real-time scanning was performed of the abdominal and retroperitoneal organs, with image documentation.? ? COMPARISON:? [facility] [place], CT, CT ABDOMEN PELVIS W CON, 05/10/2022, 14:57. ? FINDINGS:? ? Liver:? Normal size.? Increased in echogenicity. ? Gallbladder:? Nondilated. No stones or sludge. Normal gallbladder wall thickness. No pericholecystic fluid. Negative sonographic Collazo's sign.? ? Biliary ducts:? Intrahepatic bile ducts are non-dilated.? Extrahepatic bile duct caliber measures 6.5 mm.? Normal is 6-7 mm or less in diameter, or 10 mm or less post-cholecystectomy.? No free fluid seen. ? ? IMPRESSION:? Exam is technically difficult due to bowel gas.? ? 1. No acute cholecystitis. ? 2. Increased hepatic echogenicity most consistent with hepatic steatosis. Other forms of hepatocellular disease could have similar appearance. ? ? Dictated by: Varghese Hankins M.D. on 05/10/2022 at 16:20 ? ? Approved by: Varghese Hankins M.D. on 05/10/2022 at 16:23 ? CT scan - abdomen/pelvis: Radiologist's Impressoin: PROCEDURE: CT ABDOMEN PELVIS W CON INDICATIONS: epigastric pain TECHNIQUE: After the administration of oral and IV contrast, axial sections were acquired from the lung bases to the pubic symphysis. Coronal and sagittal reformats were performed. For radiation dose reduction, the following was used: automated exposure control, adjustment of mA and/or kV according to patient size. COMPARISON: None. FINDINGS: Image quality: Excellent. Lung bases: No pleural effusion. Bilateral breast implants. Heart: No significant findings. ABDOMEN: Liver: No focal lesion. Gallbladder: Within normal limits. Biliary ducts: Unremarkable. Pancreas: Unremarkable. Spleen: Unremarkable. Adrenal Glands: No nodule. Kidneys and Ureters: No hydronephrosis. Scarring at the right kidney. Stomach and Bowel: Stomach, small bowel loops, and colon are unremarkable. Diverticulosis. The appendix is not dilated. Peritoneum: No abnormal intraperitoneal fluid. No free air. Ventral Wall: Small umbilical hernia. Abdominal Nodes: No retroperitoneal or mesenteric adenopathy by size criteria. Vessels: Aorta and inferior vena cava are normal in size. PELVIS: Pelvic Organs: Anteverted uterus. No free fluid. Bladder: No stones. Pelvic Nodes: No enlarged lymph nodes. Miscellaneous: No inguinal hernias are seen. Bones: No suspicious lesion. T12 and L2 Schmorl's nodes. IMPRESSION: No acute abnormality demonstrated. No free fluid. Dictated by: Varghese Hankins M.D. on 05/10/2022 at 14:43 Approved by: Varghese Hankins M.D. on 05/10/2022 at 14:48 MDM Narrative Medical decision making narrative: This is a 52-year-old female with history of alcoholism who presents to the emergency department seeking medical clearance for detox for alcohol. Patient drinks approximately 1-2 bottles of wine per day, has had episodes of alcohol withdrawal in the past without seizures. She last drank alcohol last night. Denies any homicidal or suicidal ideation, states that she is wanting to get clean from alcohol. In the emergency department she started with a CIWA of 19, she received a total of 485 mg of phenobarbital, 100 mg IV thiamine, Tylenol 975 mg, Dilaudid 0.5 mg x 1, Protonix 40 mg IV x1, Zofran 4 mg and magnesium 2 g IV for hypomagnesemia with a level 1.5. Her CIWA is now 1, she feels much better, denies anxiety, and is not having vomiting or distress. She is medically clear at this point, urine is negative for infection, urine drug screen shows barbiturates, negative for all other toxins. Pertinent labs include hypomagnesemia as stated above, total bilirubin of 1.8, AST is mildly elevated at 44 without any priors to compare to. No leukocytosis, anemia, her serum was negative, no other elevation to her liver enzymes and her COVID PCR is negative. She is now medically clear after above treatments, she was given 2 L IV fluids, her initial lactate was 3.5 and repeat was 1.3. Please see social work's note. Patient was accepted after medical clearance to [facility] for inpatient alcohol detox. Patient was given 2nd dose of Zofran, Percocet for her abdominal pain, and Protonix p.o. prior to discharge. Her checkin is at 22:00, she was discharged at 21:00 with her family to commute there. Patient appears well hydrated, feels much better now, without altered mental status, no tongue fasciculations, minimal if any tremor at time of discharge. Patient is appropriate and amenable to discharge home. Vital signs are stable on repeat examination is unremarkable. Patient has been informed of results. Patient has been given strict return to ER precautions for any new or worsening symptoms. Patient understands to follow up closely with outpatient providers as instructed. Patient understands plan and agrees to discharge home. All questions and concerns answered at this time. <Rom Honeycutt, DO - Last Filed: 05/11/22 08:36> Lab Data Labs: Lab Results 05/10/22 05/10/22 05/10/22 Range/Units 13:00 13:00 13:00 WBC 10.7 (4.5-11.0) X10^3/uL RBC 4.59 (4.0-5.2) X10^6/uL Hgb 15.2 (12.0-16.0) g/dL Hct 43.9 (36-46) % MCV 95.7 (80-100) fL MCH 33.2 (26-34) PG MCHC 34.7 (30-36) % RDW 13.6 (11.6-14.8) % Plt Count 190 (150-400) X10^3/uL Neut % (Auto) 83.8 H (50-75) % Lymph % (Auto) 11.5 L (25-40) % [place] % (Auto) 4.1 (3-14) % Eos % (Auto) 0.0 L (2-4) % Baso % (Auto) 0.6 (0-2) % Neut # (Auto) 9000 H (2292-8164) /uL Lymph # (Auto) 1200 (0365-4500) /uL [place] # (Auto) 400 (0-900) /uL Eos # (Auto) 0 (0-450) /uL Baso # (Auto) 100 (0-100) /uL Sodium 132 L (137-145) mmol/L Potassium 3.8 (3.4-5.1) mmol/L Chloride 94 L (98-107) mmol/L Carbon Dioxide 23 (22-32) mmol/L BUN 12 (7-17) mg/dL Creatinine 0.68 (0.52-1.04) mg/dL Estimated GFR > 60 (>60) mL/min BUN/Creatinine Ratio 17.6 (6-22) Glucose 109 H (70-100) mg/dL Lactate (0.7-2.1) mmol/L Calcium 8.9 (8.4-10.2) mg/dL Magnesium (1.6-2.3) mg/dL Total Bilirubin 1.8 H (0.2-1.3) mg/dL AST 44 H (14-36) IU/L ALT 28 (<35) IU/L Alkaline Phosphatase 98 (38-126) U/L Total Protein 8.8 H (6.3-8.2) g/dL Albumin 4.9 (3.5-5.0) g/dL Globulin 3.9 (1.7-4.1) g/dL Albumin/Globulin Ratio 1.3 (1.0-2.8) Serum , Qual Negative (Negative) Urine Color Urine Appearance Urine pH (4.5-8.0) Ur Specific [place] (1.000-1.035) Urine Protein (Negative) Urine Glucose (UA) (Negative) g/dL Urine Ketones (NEGATIVE) Urine Occult Blood (Negative) Urine Nitrate (Negative) Urine Bilirubin (NEGATIVE) Urine Urobilinogen (0.2) E.U./dL Ur Leukocyte Esterase (NEGATIVE) Urine RBC (0-5/HPF) Urine WBC (0-5/HPF) Ur Squamous Epith Cells (0-5/HPF) Ur Transition Epith Cell (0-5/HPF) Ur Renal Epithelial Cell (0-1/HPF) Urine Bacteria (None) Salicylates < 1.0 (<20) mg/dL U Opiates 300ng/mL cut (Negative) Ur Oxycodone Screen (Negative) Urine Methadone Screen (Negative) Acetaminophen < 10 (10-30) ug/mL Ur Barbiturates Screen (Negative) U Tricyclic Antidepress (Negative) Ur Phencyclidine Scrn (Negative) Ur Amphetamines Screen (Negative) U Methamphetamines Scrn (Negative) Ur MDMA Scrn (Ecstasy) (Negative) U Benzodiazepines Scrn (Negative) Urine Cocaine Screen (Negative) U Marijuana (THC) Screen (Negative) Ethyl Alcohol 29 H ( - 10) mg/dL SARS-CoV-2 (PCR) (Negative) 05/10/22 05/10/22 05/10/22 Range/Units 13:00 13:00 13:04 WBC (4.5-11.0) X10^3/uL RBC (4.0-5.2) X10^6/uL Hgb (12.0-16.0) g/dL Hct (36-46) % MCV (80-100) fL MCH (26-34) PG MCHC (30-36) % RDW (11.6-14.8) % Plt Count (150-400) X10^3/uL Neut % (Auto) (50-75) % Lymph % (Auto) (25-40) % [place] % (Auto) (3-14) % Eos % (Auto) (2-4) % Baso % (Auto) (0-2) % Neut # (Auto) (0307-6574) /uL Lymph # (Auto) (5605-2818) /uL [place] # (Auto) (0-900) /uL Eos # (Auto) (0-450) /uL Baso # (Auto) (0-100) /uL Sodium (137-145) mmol/L Potassium (3.4-5.1) mmol/L Chloride (98-107) mmol/L Carbon Dioxide (22-32) mmol/L BUN (7-17) mg/dL Creatinine (0.52-1.04) mg/dL Estimated GFR (>60) mL/min BUN/Creatinine Ratio (6-22) Glucose (70-100) mg/dL Lactate 3.5 H (0.7-2.1) mmol/L Calcium (8.4-10.2) mg/dL Magnesium 1.5 L (1.6-2.3) mg/dL Total Bilirubin (0.2-1.3) mg/dL AST (14-36) IU/L ALT (<35) IU/L Alkaline Phosphatase (38-126) U/L Total Protein (6.3-8.2) g/dL Albumin (3.5-5.0) g/dL Globulin (1.7-4.1) g/dL Albumin/Globulin Ratio (1.0-2.8) Serum , Qual (Negative) Urine Color Urine Appearance Urine pH (4.5-8.0) Ur Specific [place] (1.000-1.035) Urine Protein (Negative) Urine Glucose (UA) (Negative) g/dL Urine Ketones (NEGATIVE) Urine Occult Blood (Negative) Urine Nitrate (Negative) Urine Bilirubin (NEGATIVE) Urine Urobilinogen (0.2) E.U./dL Ur Leukocyte Esterase (NEGATIVE) Urine RBC (0-5/HPF) Urine WBC (0-5/HPF) Ur Squamous Epith Cells (0-5/HPF) Ur Transition Epith Cell (0-5/HPF) Ur Renal Epithelial Cell (0-1/HPF) Urine Bacteria (None) Salicylates (<20) mg/dL U Opiates 300ng/mL cut (Negative) Ur Oxycodone Screen (Negative) Urine Methadone Screen (Negative) Acetaminophen (10-30) ug/mL Ur Barbiturates Screen (Negative) U Tricyclic Antidepress (Negative) Ur Phencyclidine Scrn (Negative) Ur Amphetamines Screen (Negative) U Methamphetamines Scrn (Negative) Ur MDMA Scrn (Ecstasy) (Negative) U Benzodiazepines Scrn (Negative) Urine Cocaine Screen (Negative) U Marijuana (THC) Screen (Negative) Ethyl Alcohol ( - 10) mg/dL SARS-CoV-2 (PCR) Negative (Negative) 05/10/22 05/10/22 05/10/22 Range/Units 15:40 15:55 15:55 WBC (4.5-11.0) X10^3/uL RBC (4.0-5.2) X10^6/uL Hgb (12.0-16.0) g/dL Hct (36-46) % MCV (80-100) fL MCH (26-34) PG MCHC (30-36) % RDW (11.6-14.8) % Plt Count (150-400) X10^3/uL Neut % (Auto) (50-75) % Lymph % (Auto) (25-40) % [place] % (Auto) (3-14) % Eos % (Auto) (2-4) % Baso % (Auto) (0-2) % Neut # (Auto) (2214-2559) /uL Lymph # (Auto) (3532-7825) /uL [place] # (Auto) (0-900) /uL Eos # (Auto) (0-450) /uL Baso # (Auto) (0-100) /uL Sodium (137-145) mmol/L Potassium (3.4-5.1) mmol/L Chloride (98-107) mmol/L Carbon Dioxide (22-32) mmol/L BUN (7-17) mg/dL Creatinine (0.52-1.04) mg/dL Estimated GFR (>60) mL/min BUN/Creatinine Ratio (6-22) Glucose (70-100) mg/dL Lactate 1.3 (0.7-2.1) mmol/L Calcium (8.4-10.2) mg/dL Magnesium (1.6-2.3) mg/dL Total Bilirubin (0.2-1.3) mg/dL AST (14-36) IU/L ALT (<35) IU/L Alkaline Phosphatase (38-126) U/L Total Protein (6.3-8.2) g/dL Albumin (3.5-5.0) g/dL Globulin (1.7-4.1) g/dL Albumin/Globulin Ratio (1.0-2.8) Serum , Qual (Negative) Urine Color Yellow Urine Appearance Clear Urine pH 6.5 (4.5-8.0) Ur Specific [place] 1.010 (1.000-1.035) Urine Protein 1+ H (Negative) Urine Glucose (UA) Negative (Negative) g/dL Urine Ketones Trace H (NEGATIVE) Urine Occult Blood 1+ H (Negative) Urine Nitrate Negative (Negative) Urine Bilirubin Negative (NEGATIVE) Urine Urobilinogen 0.2 (0.2) E.U./dL Ur Leukocyte Esterase Negative (NEGATIVE) Urine RBC 1-5/hpf (0-5/HPF) Urine WBC None seen (0-5/HPF) Ur Squamous Epith Cells 5-10 /hpf H (0-5/HPF) Ur Transition Epith Cell 5-10/hpf H (0-5/HPF) Ur Renal Epithelial Cell 1-5/hpf H (0-1/HPF) Urine Bacteria None seen (None) Salicylates (<20) mg/dL U Opiates 300ng/mL cut Negative (Negative) Ur Oxycodone Screen Negative (Negative) Urine Methadone Screen Negative (Negative) Acetaminophen (10-30) ug/mL Ur Barbiturates Screen Positive H (Negative) U Tricyclic Antidepress Negative (Negative) Ur Phencyclidine Scrn Negative (Negative) Ur Amphetamines Screen Negative (Negative) U Methamphetamines Scrn Negative (Negative) Ur MDMA Scrn (Ecstasy) Negative (Negative) U Benzodiazepines Scrn Negative (Negative) Urine Cocaine Screen Negative (Negative) U Marijuana (THC) Screen Negative (Negative) Ethyl Alcohol ( - 10) mg/dL SARS-CoV-2 (PCR) (Negative) Urine Dip Bedside Urine Glucose Negative Bedside Urine Bilirubin - Negative Bedside Urine Ketone +/- 5 Urine Specific [place] 1.010 Bedside Urine Occult Blood + Bedside Urine pH 6 Bedside Urine Protein + 30 Bedside Urine Urobilinogen - Negative Bedside Urine Nitrite - Negative Bedside Urine Leukocytes - Negative Esterase <Rom Honeycutt, DO - Last Filed: 05/11/22 08:36> Critical Care Time Critical Care Time: Yes Total Critical Care Time: 30 Attestation: Critical Care Time [30] minutes: Critical care time is separate from other billable procedures. This critical care time includes consultation with family and other consulting doctors, review of records, and interpretation of data from labs, EKGs, imaging, etc. Discharge Plan Departure Patient Disposition: Home Clinical Impression: SIRS (systemic inflammatory response syndrome), Dehydration, Fatty infiltration of liver, Hypomagnesemia Alcohol withdrawal syndrome Qualifiers: Complication of substance-induced condition: uncomplicated Qualified Code(s): F10.930 - Alcohol use, unspecified with withdrawal, uncomplicated Acute alcoholic gastritis Qualifiers: Gastritis bleeding: without bleeding Qualified Code(s): K29.20 - Alcoholic gastritis without bleeding Activity Restrictions/Additional Instructions: *You have been diagnosed with alcohol withdrawal, epigastric pain consistent with gastritis, likely related to alcohol use. Please take omeprazole 20 mg daily for epigastric pain before food or other medications in the morning. It is available [id number]. It is okay to take twice a day if you are having epigastric pain. Tums are fine to take for symptomatic relief. Please stay hydrated, you were fairly sick today, please follow-up with the resources social work and detox will make available for you Please schedule follow-up with your primary care provider, try to abstain from alcohol, I hope this can be a life changing positive experience for you. I am sorry for how difficult this is. Thank you for coming in, I hope you feel better soon. Please schedule follow-up appointment with [place] or your primary care provider for any medication needs following discharge from detox, please consider that you may have anxiety which is difficult to treat, please speak up about your symptoms so that you can get the help that you need. Thank you for coming in today. *What to do: *Please continue to take your regular medications as directed. [ ] New medication prescriptions sent to your pharmacy: [ ] [ ] New medication written as a paper prescription [x ] No new medications given *Please follow up with your primary care provider in 2-3 days, call for an appointment. Let them know you were seen in the Emergency Department and that we asked that you be seen for follow-up. We will electronically transmit a record of today's note if your PCP is in our system *If you do not have a primary care provider please contact [phone] to establish care with one of the [facility] primary care providers. *Return to Emergency Department if you should have any new, worsening, or concerning symptoms, such as [fever greater than 101F, chills, worsening pain, persistent vomiting or other bothersome symptoms]. Prescriptions: New omeprazole 20 mg tablet,delayed release (DR/EC) 20 mg PO DAILY Qty: 30 0RF No Action hydrocodone-acetaminophen 5-325 mg tablet 1 tab PO Q4-6H PRN (Reason: pain) Qty: 20 0RF methylprednisolone [Medrol (Richie)] 4 mg tablets,dose pack See Rx Instructions .ROUTE .COMPLEX Qty: 21 0RF Rx Instructions: orally per package directions famotidine [Pepcid] 20 mg tablet 20 mg PO BID Qty: 14 0RF hydroxyzine HCl 25 mg tablet 25 mg PO QID PRN (Reason: itching) Qty: 20 0RF Referrals: Geneva Clemens PA-C [Primary Care Provider] - Stand Alone Forms: Work Release Note Visit Report Forms: Patient Portal/API <Rom Honeycutt DO - Last Filed: 05/11/22 08:36> Cosign ED Attending Cosignature Attestation: I was immediately available in the department for consultation. This documentation has been reviewed and I agree with assessment and plan. Supervised by Rom Honeycutt DO
[2022-05-10] MEDS: SODIUM CHLORIDE 0.9% 1,000 ML 1000 ML IV ×2 (13:17→14:51)
[2022-05-10] MEDS: THIAMINE 100 MG in SODIUM CHLORIDE 0.9% 100 ML 404 MG IV (13:18)
[2022-05-10] MEDS: ONDANSETRON 4 MG/2 ML INJ IV ×2 (13:18→18:34)
[2022-05-10] MEDS: PHENobarbital 65 MG/ML VIAL 260 MG IV (13:19)
[2022-05-10 13:20] LABS: Add Manual Diff / Slide Review NO; Basophils Absolute Auto 100 /uL (0-100); Basophils Percent Auto 0.6 % (0-2); Eosinophils Absolute Auto 0 /uL (0-450); Hematocrit 43.9 % (36-46); Hemoglobin 15.2 g/dL (12.0-16.0); Lymphocytes Absolute Auto 1200 /uL (1100-4500); Lymphocytes Percent Auto 11.5 % (25-40); Mean Corpuscular HGB Conc 34.7 % (30-36); Mean Corpuscular Hemoglobin 33.2 PG (26-34); Mean Corpuscular Volume 95.7 fL (80-100); Monocytes Absolute Auto 400 /uL (0-900); Monocytes Percent Auto 4.1 % (3-14); Neutrophils Absolute Auto 9000 /uL (1500-7000); Neutrophils Percent Auto 83.8 % (50-75); Platelet Count 190 X10^3/uL (150-400); Red Blood Cell Count 4.59 X10^6/uL (4.0-5.2); Red Cell Distribution Width 13.6 % (11.6-14.8); White Blood Cell Count 10.7 X10^3/uL (4.5-11.0)
[2022-05-10 13:39] LABS: Acetaminophen < 10 ug/mL (10-30); Alanine Aminotransferase 28 IU/L (<35); Albumin 4.9 g/dL (3.5-5.0); Albumin Globulin Ratio 1.3 (1.0-2.8); Alkaline Phosphatase 98 U/L (38-126); Aspartate Aminotransferase 44 IU/L (14-36); BUN Creatinine Ratio 17.6 (6-22); Bilirubin Total 1.8 mg/dL (0.2-1.3); Blood Urea Nitrogen 12 mg/dL (7-17); Calcium 8.9 mg/dL (8.4-10.2); Carbon Dioxide 23 mmol/L (22-32); Chloride 94 mmol/L (98-107); Estimated Glomerular Filt Rate > 60 mL/min (>60); Ethanol (ETOH) 29 mg/dL; Globulin 3.9 g/dL (1.7-4.1); Glucose 109 mg/dL (70-100); HEMOLYSIS 21 (0-50); Magnesium 1.5 mg/dL (1.6-2.3); Potassium 3.8 mmol/L (3.4-5.1); Salicylate < 1.0 mg/dL (<20); Sodium 132 mmol/L (137-145); Total Protein 8.8 g/dL (6.3-8.2)
[2022-05-10 13:42] LABS: Pregnancy Test Serum,Qual Negative (Negative)
[2022-05-10] MEDS: MAGNESIUM SULFATE 2 GM/50 ML PIGGYBACK IV (14:04)
[2022-05-10 14:05] LABS: Lactate (Lactic Acid) 3.5 mmol/L (0.7-2.1)
[2022-05-10 14:16] LABS: COVID19 -Nasal RAPID Negative (Negative)
--- NOTE | 2022-05-10 14:20 | DI.US.S_ITS ---
PROCEDURE: US ABDOMEN LIMITED INDICATIONS: ELEVATED BILIRUBIN TECHNIQUE: Real-time scanning was performed of the abdominal and retroperitoneal organs, with image documentation. COMPARISON: [facility], CT, CT ABDOMEN PELVIS W CON, 05/10/2022, 14:57. FINDINGS: Liver: Normal size. Increased in echogenicity. Gallbladder: Nondilated. No stones or sludge. Normal gallbladder wall thickness. No pericholecystic fluid. Negative sonographic Collazo's sign. Biliary ducts: Intrahepatic bile ducts are non-dilated. Extrahepatic bile duct caliber measures 6.5 mm. Normal is 6-7 mm or less in diameter, or 10 mm or less post-cholecystectomy. No free fluid seen. IMPRESSION: Exam is technically difficult due to bowel gas. 1. No acute cholecystitis. 2. Increased hepatic echogenicity most consistent with hepatic steatosis. Other forms of hepatocellular disease could have similar appearance. Dictated by: Varghese Hankins M.D. on 05/10/2022 at 16:20 Approved by: Varghese Hankins M.D. on 05/10/2022 at 16:23
[2022-05-10] MEDS: PHENobarbital 65 MG/ML VIAL 130 MG IV ×2 (14:37→15:47)
[2022-05-10] MEDS: PANTOPRAZOLE 40 MG VIAL IV (14:37)
--- NOTE | 2022-05-10 14:47 | DI.CT.S_ITS ---
PROCEDURE: CT ABDOMEN PELVIS W CON INDICATIONS: epigastric pain TECHNIQUE: After the administration of oral and IV contrast, axial sections were acquired from the lung bases to the pubic symphysis. Coronal and sagittal reformats were performed. For radiation dose reduction, the following was used: automated exposure control, adjustment of mA and/or kV according to patient size. COMPARISON: None. FINDINGS: Image quality: Excellent. Lung bases: No pleural effusion. Bilateral breast implants. Heart: No significant findings. ABDOMEN: Liver: No focal lesion. Gallbladder: Within normal limits. Biliary ducts: Unremarkable. Pancreas: Unremarkable. Spleen: Unremarkable. Adrenal Glands: No nodule. Kidneys and Ureters: No hydronephrosis. Scarring at the right kidney. Stomach and Bowel: Stomach, small bowel loops, and colon are unremarkable. Diverticulosis. The appendix is not dilated. Peritoneum: No abnormal intraperitoneal fluid. No free air. Ventral Wall: Small umbilical hernia. Abdominal Nodes: No retroperitoneal or mesenteric adenopathy by size criteria. Vessels: Aorta and inferior vena cava are normal in size. PELVIS: Pelvic Organs: Anteverted uterus. No free fluid. Bladder: No stones. Pelvic Nodes: No enlarged lymph nodes. Miscellaneous: No inguinal hernias are seen. Bones: No suspicious lesion. T12 and L2 Schmorl's nodes. IMPRESSION: No acute abnormality demonstrated. No free fluid. Dictated by: Varghese Hankins M.D. on 05/10/2022 at 14:43 Approved by: Varghese Hankins M.D. on 05/10/2022 at 14:48
[2022-05-10] MEDS: ACETAMINOPHEN 325 MG TABLET 975 MG PO (14:50)
[2022-05-10 15:56] LABS: Reflexed Lactate in 2 Hours Y
[2022-05-10 16:14] LABS: Lactate 2HR (Lactic Acid Rflx) 1.3 mmol/L (0.7-2.1)
[2022-05-10 16:27] LABS: UR Morphine/Opiate cutoff 300 Negative (Negative); Ur Creatinine Normal (Normal); Ur Specific Gravity Normal (Normal); Urine Amphetamines Negative (Negative); Urine Barbiturates Positive (Negative); Urine Cocaine Negative (Negative); Urine MDMA Negative (Negative); Urine Methamphetamines Negative (Negative); Urine Phencyclidine Negative (Negative); Urine Tetrahydrocannabinol Negative (Negative); Urine pH Normal (Normal)
[2022-05-10 16:28] LABS: Urine Benzodiazepines Negative (Negative); Urine Methadone Negative (Negative); Urine Oxycodone Negative (Negative); Urine Tricyclic Antidepressant Negative (Negative)
[2022-05-10] MEDS: BENZOCAINE/MENTHOL 1 LOZ PKT 1 EACH PO (16:33)
[2022-05-10] MEDS: PHENobarbital 65 MG/ML VIAL IV (16:33)
[2022-05-10 16:35] LABS: Appearance Urine UA CLEAR; Bilirubin Urine UA NEGATIVE (NEGATIVE); Color Urine UA YELLOW; Glucose Urine UA NEGATIVE (Negative); Ketones Urine UA TRACE (NEGATIVE); Leukocyte Esterase Urine UA NEGATIVE (NEGATIVE); Nitrite Urine UA NEGATIVE (Negative); Occult Blood Urine UA 1+ (Negative); Protein Urine UA 1+ (Negative); Urobilinogen Urine UA 0.2 E.U./dL (0.2)
[2022-05-10 16:38] LABS: pH Urine UA 6.5 (4.5-8.0)
[2022-05-10] MEDS: POLYVINYL ALCOHOL DROPS 1 DROPS EYE-BOTH (16:56)
--- NOTE | 2022-05-10 17:06 | PC.NURSE ---
Pt reports I feel very weak, and so fatigued. Provider made aware.
[2022-05-10 17:39] LABS: Bacteria Urine None Seen; RBC Urine 1-5/HPF (0-5/HPF); Renal Epithelial Cells Urine 1-5/HPF (0-1/HPF); Squamous Epithelial Cell Urine 5-10 /HPF (0-5/HPF); Transitional Epi Cells Urine 5-10/HPF (0-5/HPF); WBC Urine None Seen (0-5/HPF)
--- NOTE | 2022-05-10 18:07 | PC.NURSE ---
pt on phone with [facility] for rehab.
--- NOTE | 2022-05-10 18:34 | CM.SWNOTE ---
Addendum entered by Katharine Rodriguez 05/10/22 19:51: S[employer]LE [employer] Note S[employer]LE [employer] receives call from [facility] [employer], patient is accepted for this evening at 2200. SINGLE RESOURCE [employer]OSS reviews this with patient and family. Patient requests work note to excuse patient from work. SINGLE RESOURCE BOSS reviews this with ED provider. Plan: Patient to d/c to [facility] via POV with family this evening. [facility] Daily Original Note: SINGLE RESOURCE B[employer] Note RN and ED provider evaluate patient and RN contacts [facility] once patient is medically clear for detox bed. S[employer] assists patient with phone screen and faxing patient's clinicals to [facility]. Patient is 52 y/o female who presents to ED with ETOH withdrawals and seeking detox. Patient has [facility] [employer] Medicaid insurance. Patient's PCP is [facility]. Per EMR, patient's last drink was last evening. Patient's BAL is 29 per toxicology screen. Patient denies hx of seizures but patient presents with dizziness, tremors and N/V. [employer] checks in with patient and intake screening and it is reported by patient that [facility] will contact patient regarding acceptance and time for arrival. Patient endorses she will have a ride to [facility] from family. Plan: [facility] currently reviewing patient, SINGLE RESOURCE BOSS to f/u with POC. [facility] Daily
[2022-05-10] MEDS: OXYCODONE/ACETAMINOPHEN 5/325 TABLET 1 TAB PO (20:26)
[2022-05-10] MEDS: hydrOXYzine pamoate 25 MG CAPSULE PO (20:26)
[2022-05-10] MEDS: PANTOPRAZOLE DR 20 MG TABLET PO (20:27)
== END 2022-05-10 21:03 | disposition home or self-care (01) ==
PROVIDERS: Emergency Provider Nurse Practitioner Critical Care Medicine; Family Provider Physician Assistant Medical; PCP Physician Assistant Medical
DX: R65.10 Systemic inflammatory response syndrome (SIRS) of non-infectious origin without acute organ dysfunction (principal); F10.930 Alcohol use, unspecified with withdrawal, uncomplicated; K29.20 Alcoholic gastritis without bleeding; E83.42 Hypomagnesemia; K70.0 Alcoholic fatty liver; E86.0 Dehydration; R10.13 Epigastric pain; R51.9 Headache, unspecified; Z20.822 Contact with and (suspected) exposure to COVID-19
CPT/HCPCS: 36415; 74177; 76705; 80053; 80305; 80320; 80329; 81001; 81003; 83605; 83735; 84703; 85025; 87086; 87635; 96361; 96365; 96375; 96376; 99285; 99291; C9803; C9113; G0480; J2405; J2560; J3475; Q9967

== ENCOUNTER 2022-11-02 17:42 | Emergency (ER) | payer OTHER, MEDICAID, SELFPAY ==
[2022-11-02] VITALS (10 sets, daily range): BP systolic 139–183; BP diastolic 64–80; PULSE 62–80; RESP 16; TEMP 36.7; O2SAT 96–99
[2022-11-02] MEDS: ONDANSETRON 4 MG ODT SL (18:13)
--- NOTE | 2022-11-02 18:35 | ED_ITS ---
HPI - Nausea/Vomiting/Diarrhea General Chief complaint: Nausea/Vomiting/Diarrhea Stated complaint: Detox please Time Seen by Provider: 11/02/22 17:59 Source: patient and other (Friends) Mode of arrival: Ambulatory Limitations: no limitations History of Present Illness HPI Narrative: Patient is a 52-year-old female. Is an alcoholic. States her last drink was this morning. She has withdrawn from alcohol in the past but has never had a seizure. She is here with friends. She does have a bed available for her at a rehab facility in [place]. They know that the bed will be available this week but they are not exactly sure what day. They are here seeking help with detox until she can make it to the rehab facility. She states she is feeling nauseous. She did receive some Zofran prior to my evaluation and she states this has helped her nausea. She is having some shaking. She is allergic to penicillin. Has a history of reflux disease. She states that she is not seeking an inpatient detox but would like medications to help. Her friend states that they have a plan in place to have individuals with her consistently for the next couple days until she makes it to rehab. Related Data Previous Rx's Medication Instructions Recorded hydrocodone 5 mg-acetaminophen 325 1 tab PO Q4-6H PRN pain #20 tabs 02/27/18 mg tablet famotidine 20 mg tablet (Pepcid) 20 mg PO BID #14 tabs 12/19/21 hydroxyzine HCl 25 mg tablet 25 mg PO QID PRN itching #20 tabs 12/19/21 methylprednisolone 4 mg tablets in See Rx Instructions PO .COMPLEX 12/19/21 a dose pack (Medrol (Richie)) #21 ea omeprazole 20 mg tablet,delayed 20 mg PO DAILY #30 tabs 05/10/22 release chlordiazepoxide HCl 25 mg capsule 25 mg PO TID PRN alcohol 11/02/22 withdrawal #12 caps Allergies Allergy/AdvReac Type Severity Reaction Status Date / Time Penicillins Allergy Verified 05/10/22 12:40 PCN (PENICILLIN) Allergy Severe HIVES Uncoded 10/21/17 12:17 Review of Systems Constitutional Constitutional: Reports system reviewed and no additional complaints, except as documented Cardiovascular Cardiovascular: Reports system reviewed and no additional complaints, except as documented Respiratory Respiratory: Reports system reviewed and no additional complaints, except as documented Gastrointestinal Gastrointestinal: Reports system reviewed and no additional complaints, except as documented Neurologic Neurologic: Reports system reviewed and no additional complaints, except as documented Hematologic/Lymphatic On Anticoagulants: No Patient History Medical History (Updated 11/02/22 @ 21:12 by Enrrique Guerrero DO) Healthy adult Surgical History No pertinent past surgical history Social History Smoking Status: Unknown if ever smoked Smoking Status: Unknown if ever smoked alcohol intake frequency: 3 or more drinks per day Alcohol type: wine Substance Use Type: does not use Exam Initial Vital Signs Initial Vital Signs: Vital Signs Pulse Rate 68 11/02/22 18:10 Pulse Oximetry 99 11/02/22 18:10 Const General: cooperative and comfortable HENMT Head: normal to inspection and normocephalic Resp Effort & Inspection: normal respiratory effort Cardio Rate: regular rate Neuro General: patient alert, patient awake and moves all extremities Cognition: normal cognition Speech: speech normal Extrem General: normal to inspection Course Orders Ordered: ED Orders 11/02/22 20:18 Urine Microscopic Stat Discontinued Medications Ondansetron HCl (Ondansetron 4 Mg Odt) 4 mg SL NOW PRN PRN Reason: Nausea And Vomiting Last Admin: 11/02/22 18:13 Dose: 4 mg Documented By: LU Ondansetron HCl (Ondansetron 4 Mg/2 Ml Inj) 4 mg IV NOW PRN PRN Reason: Nausea And Vomiting Ondansetron HCl (Ondansetron 4 Mg Odt Prepack) 1 bottle MISC SEEINSTR ONE Stop: 11/02/22 21:13 Last Admin: 11/02/22 21:30 Dose: 1 bottle Documented By: ERIN Phenobarbital (Phenobarbital 65 Mg/Ml Vial) 260 mg IV NOW ONE Stop: 11/02/22 18:36 Last Admin: 11/02/22 19:00 Dose: 260 mg Documented By: LU Phenobarbital (Phenobarbital 65 Mg/Ml Vial) 130 mg IV NOW ONE Stop: 11/02/22 20:00 Last Admin: 11/02/22 20:16 Dose: 130 mg Documented By: ERIN Vital Signs Vital signs: Vital Signs - 8 hr 11/02/22 18:12 11/02/22 18:10 11/02/22 18:30 Temperature 98.1 F Pulse Rate 76 68 71 Respiratory Rate 16 Blood Pressure 183/80 H Pulse Oximetry 98 99 99 Oxygen Delivery Method Room Air 11/02/22 19:00 11/02/22 19:30 11/02/22 20:00 Temperature Pulse Rate 62 76 72 Respiratory Rate Blood Pressure Pulse Oximetry 98 98 99 Oxygen Delivery Method 11/02/22 20:16 11/02/22 20:16 11/02/22 20:30 Temperature Pulse Rate 80 79 Respiratory Rate Blood Pressure 142/64 H Pulse Oximetry 96 97 Oxygen Delivery Method 11/02/22 21:00 11/02/22 21:27 11/02/22 21:27 Temperature Pulse Rate 72 80 Respiratory Rate Blood Pressure 139/65 Pulse Oximetry 97 97 Oxygen Delivery Method MDM - Nausea/Vomiting/Diarrhea Lab Data Attestation: I reviewed the patient's lab results. Labs: Lab Results 11/02/22 Range/Units 20:18 Urine RBC 1-5/hpf (0-5/HPF) Urine WBC None seen (0-5/HPF) Urine Bacteria None seen (None) Urine Mucus 3+ H (Negative) Ur Culture Indicated? Cult not indicated Urine Dip Bedside Urine Glucose Negative Bedside Urine Bilirubin - Negative Bedside Urine Ketone ++ 40 Urine Specific [place] 1.030 Bedside Urine Occult Blood +/- Bedside Urine pH 6.0 Bedside Urine Protein + 30 Bedside Urine Urobilinogen - Negative Bedside Urine Nitrite - Negative Bedside Urine Leukocytes - Negative Esterase MDM Narrative Medical decision making narrative: Patient does have a significant alcohol history. She is here with a friend. She received 2 doses of phenobarbital and her symptoms were well controlled. She is not having any vomiting. Had a long discussion with the patient and her friend regarding her options. I strongly recommended that we find a detox facility for her. I tried to retrieve her that despite any medications that she takes at home there is the potential that her symptoms could get worse. Told her that going to a detox facility would allow a medical professional to administer more medications more often. Tried to pretreat her that detoxing at home was frequently unsuccessful because of the severity of the symptoms. We also discussed the risks of alcohol detox and that it potentially could be life- threatening. Patient's friend states that she was going to be with her and there were other individuals that are going to be with her. They have a plan for her to go to a rehab facility but that was not going to be until Thursday. We also discussed the concerns about being discharged home with medications that if mixed with alcohol could be sedating hand distally as well. After all this the patient and her friend still would like to take her home. I will send her home with a prescription for Librium. They were advised that they could return to the emergency department at any point if her symptoms worsened at home. They also stated they understand that since her last drink was just this morning this is most likely just beginning of her symptoms. They were comfortable being discharged home. Discharge Plan Departure Patient Disposition: Home Clinical Impression: Alcohol use disorder Instructions: Alcohol Use Disorder, Alcohol Withdrawal Activity Restrictions/Additional Instructions: Highly recommend that you continue with your plan of attending rehab later this week. Until then you can use the medication that you were prescribed as needed for withdrawal symptoms. You can also return to the emergency department at any point if needed and if your symptoms are severe and not adequately controlled with the medications. Prescriptions: New chlordiazepoxide HCl 25 mg capsule 25 mg PO TID PRN (Reason: alcohol withdrawal) Qty: 12 0RF No Action hydrocodone-acetaminophen 5-325 mg tablet 1 tab PO Q4-6H PRN (Reason: pain) Qty: 20 0RF methylprednisolone [Medrol (Richie)] 4 mg tablets,dose pack See Rx Instructions .ROUTE .COMPLEX Qty: 21 0RF Rx Instructions: orally per package directions famotidine [Pepcid] 20 mg tablet 20 mg PO BID Qty: 14 0RF hydroxyzine HCl 25 mg tablet 25 mg PO QID PRN (Reason: itching) Qty: 20 0RF omeprazole 20 mg tablet,delayed release (DR/EC) 20 mg PO DAILY Qty: 30 0RF Referrals: Geneva Clemens PA-C [Primary Care Provider] - Stand Alone Forms: Patient Portal/API
[2022-11-02] MEDS: PHENobarbital 65 MG/ML VIAL 260 MG IV (19:00)
[2022-11-02] MEDS: PHENobarbital 65 MG/ML VIAL 130 MG IV (20:16)
[2022-11-02] MEDS: ONDANSETRON 4 MG ODT PREPACK 1 BOTTLE MISC (21:30)
[2022-11-02 21:35] LABS: Bacteria Urine None Seen; Culture Indicated Urine Cult Not Indicated; Mucus Urine 3+ (Negative); RBC Urine 1-5/HPF (0-5/HPF); WBC Urine None Seen (0-5/HPF)
== END 2022-11-02 21:42 | disposition home or self-care (01) ==
PROVIDERS: Emergency Provider Emergency Medicine; Family Provider Physician Assistant Medical; PCP Physician Assistant Medical
DX: F10.239 Alcohol dependence with withdrawal, unspecified (principal)
CPT/HCPCS: 81003; 81015; 96374; 96376; 99284; J2560